=== PATIENT | male | born 1990 | race American Indian/Alaskan Native ===

== ENCOUNTER 2017-10-08 20:52 | Emergency (ER) | payer SELFPAY ==
[2017-10-08 20:57] VITALS: BMI 25.7
[2017-10-08 21:00] VITALS: O2SAT 100
[2017-10-08 21:16] VITALS: RESP 18
[2017-10-08] MEDS ORDERED: Sodium Chloride 0.9% 1,000 ML IV STA (21:46)
--- NOTE | 2017-10-08 21:49 | ED PDOC ---
HPI: Psych/Substance Abuse Time Seen by Provider: 10/08/17 21:40 Chief Complaint (Nursing): Substance Abuse Chief Complaint (Provider): substance abuse History Per: Patient, EMS, Other (girlfriend) Additional Complaint(s): 27 y/o male brought in by EMS for evaluation of possible overdose. As per patient, states he drank half a bottle of [place] whiskey and "passed out". As per girlfriend, patient was outside smoking a cigarette and when she came out she saw him sitting in a chair "unresponsive". Patient states she stuck her finger down his throat and he started vomiting but "gasping" so she called 911. Patient received two intranasal narcan doses, and two intravenous narcan doses and woke up within minutes. Patient denies opiate use. Actively vomiting. Against Medical Advice - AMA Patient Left Against Medical Advice: The patient declines admission to the hospital and wishes to leave the Emergency Department. This action is against my medical advice. This decision was made with informed refusal. The patient was told that admission to the hospital is necessary. Explanation of the reasons why were discussed. The risks of leaving were explained to the patient and include, but are not limited to, worsening of known or currently unknown conditions, permanent disability and from undiagnosed or untreated conditions. The patient has the capacity to make this informed decision and understands my explanation of the current medical problem and risks of leaving. The patient voluntarily accepts these risks and signed an AMA form documenting our conversation. The patient was given the opportunity to ask questions and reconsider. The patient was encouraged to return to the Emergency Department at any time for further care. Past Medical History Reviewed: Historical Data, Nursing Documentation, Vital Signs Vital Signs: Last Vital Signs Temp 98.1 F 10/08/17 21:16 Pulse 89 10/08/17 21:16 Resp 18 10/08/17 21:16 BP 130/78 10/08/17 21:16 Pulse Ox 100 10/08/17 21:16 - Medical History PMH: No Chronic Diseases - Surgical History Surgical History: No Surg Hx - Family History Family History: States: No Known Family Hx - Social History Current smoker - smoking cessation education provided: Yes Alcohol: Social Drugs: Cannabis - Allergies Allergies/Adverse Reactions: Allergies Allergy/AdvReac Type Severity Reaction Status Date / Time No Known Allergies Allergy Verified 10/08/17 20:57 Review of Systems ROS Statement: Except As Marked, All Systems Reviewed And Found Negative Neurological: Positive for: Altered Mental Status Physical Exam - Reviewed Nursing Documentation Reviewed: Yes Vital Signs Reviewed: Yes - Physical Exam Appears: Positive for: Well, Non-toxic, No Acute Distress Head Exam: Positive for: ATRAUMATIC, NORMAL INSPECTION, NORMOCEPHALIC Skin: Positive for: Normal Color Eye Exam: Positive for: Normal appearance, EOMI. Negative for: PERRL (pinpoint bilaterally) ENT: Positive for: Normal ENT Inspection Cardiovascular/Chest: Positive for: Regular Rate, Rhythm Respiratory: Positive for: Normal Breath Sounds Gastrointestinal/Abdominal: Positive for: Normal Exam Back: Positive for: Normal Inspection Extremity: Positive for: Normal ROM Neurologic/Psych: Positive for: Alert, Oriented - ECG O2 Sat by Pulse Oximetry: 100 - Progress ED Course And Treament: IV fluids, Zofran ODT Patient refusing labs, urine, ekg Wants to go home. Actively vomiting after PO challenge with water. Patient advised he will need to sign out against medical advice. Patient awake , alert, oriented x3. Displays competency in making medical decisions. Advised follow up PMD 2-3 days. Return precautions given. Disposition - Clinical Impression Clinical Impression: Persistent vomiting, Left against medical advice, Opiate overdose - Patient ED Disposition Is Patient to be Admitted: No Counseled Patient/Family Regarding: Diagnosis, Need For Followup - Disposition Referrals: [facility] [Outside] Disposition: Against Medical Advice Disposition Time: 23:15 Condition: STABLE Instructions: Leaving Against Medical Advice Forms: [facility] ED School/Work Excuse
[2017-10-08 23:51] VITALS: BP 128/76; PULSE 80; TEMP 98
== END 2017-10-08 23:18 | disposition left against medical advice (07) ==
LOC: H.ER 20:52
DX: R11.10 Vomiting, unspecified (principal); T40.601A Poisoning by unspecified narcotics, accidental (unintentional), initial encounter; F17.210 Nicotine dependence, cigarettes, uncomplicated

== ENCOUNTER 2018-11-21 11:25 | Emergency (ER) | payer OTHER ==
[2018-11-21 11:59] VITALS: BMI 26.1
[2018-11-21 12:00] VITALS: BP 127/85; PULSE 57; RESP 20; TEMP 98.2; O2SAT 98
--- NOTE | 2018-11-21 13:41 | ED PDOC ---
Upper Extremity Pain/Injury Time Seen by Provider: 11/21/18 12:10 Chief Complaint (Nursing): Upper Extremity Problem/Injury Chief Complaint (Provider): Right Wrist Pain, 3rd Digit Pain History Per: Patient History/Exam Limitations: no limitations Onset/Duration Of Symptoms: Hrs Additional Complaint(s): 28 year old male with no significant medical history presents to ED with right wrist pain and 3rd digit pain. He was playing basketball when he fell with his hand outstretched. Patient reports that pain is worse with certain movement but denies taking any medicine, numbness, tingling. PMD: Fabio Past Medical History Reviewed: Historical Data, Nursing Documentation, Vital Signs Vital Signs: Last Vital Signs Temp 98.2 F 11/21/18 11:59 Pulse 57 L 11/21/18 11:59 Resp 20 11/21/18 11:59 BP 127/85 11/21/18 11:59 Pulse Ox 98 11/21/18 11:59 Primary Care Provider: FAMILY PROVIDER,NO - Medical History PMH: No Chronic Diseases - Surgical History Surgical History: No Surg Hx - Family History Family History: States: No Known Family Hx - Home Medications Home Medications: Ambulatory Orders Medication Instructions Recorded Ibuprofen [Motrin Tab] 600 mg PO Q6 PRN #20 tab 11/21/18 - Allergies Allergies/Adverse Reactions: Allergies Allergy/AdvReac Type Severity Reaction Status Date / Time No Known Allergies Allergy Verified 10/08/17 20:57 Review of Systems ROS Statement: Except As Marked, All Systems Reviewed And Found Negative Neurological: Negative for: Numbness, Other (tingling) Physical Exam - Reviewed Nursing Documentation Reviewed: Yes Vital Signs Reviewed: Yes - Physical Exam Appears: Positive for: No Acute Distress Skin: Positive for: Warm, Dry Cardiovascular/Chest: Positive for: Chest Non Tender. Negative for: Gallop, Murmur, Irregularly Irregular Respiratory: Positive for: Other (breath sounds equal bilaterally). Negative for: Rales, Rhonchi, Wheezing Pulses-Radial (R): 2+ Extremity: Positive for: Tenderness (to mid wrist with decreased extension due to pain), Capillary Refill (less than 2 seconds), Swelling (and tenderness to 3rd PIP with small healed abrasion), Other (flexion and extension of PIP are intact) Neurological/Psych: Positive for: Awake, Alert, Symmetric/Intact Strength, Oriented (x3) - ECG O2 Sat by Pulse Oximetry: 98 (RA) Pulse Ox Interpretation: Normal - Radiology X-Ray: Interpreted by Me (no acute fractures or dislocation), Viewed By Me, Read By Radiologist Medical Decision Making Medical Decision Making: Time: 1323 Initial Plan: Patient does not want anything --Xray 1339 Xray examined by PA and determined that there are no acute fractures or dislocations. PA discussed findings with patient and agreed to share any discrepancies with the radiologist. Patient treated with Alfred wrap and hard metacarpal splint applied by ED staff official radiology reports below Right Wrist Xray FINDINGS: BONES: No acute fracture or destructive bony lesion identified. JOINTS: Normal. No dislocation. SOFT TISSUES: Normal. OTHER FINDINGS: None. IMPRESSION: Unremarkable right wrist radiographs. Right Hand Xray FINDINGS: RIGHT MIDDLE FINGER: Right middle finger normal, without fracture of focal lesion. Remainder of the right hand (as seen on the AP view) grossly unremarkable. JOINTS: No dislocation or subluxation identified. SOFT TISSUES: Normal. OTHER FINDINGS: None. IMPRESSION: Unremarkable right middle finger radiographs. Discussed results, diagnosis, treatment, return precautions and f/u with pt who is understanding, in agreement and stable for dc Scribe Attestation: Documented by Kristopher Cam acting as a scribe for Von Heller PA-C. Provider Scribe Attestation: All medical record entries made by the Scribe were at my direction and personally dictated by me. I have reviewed the chart and agree that the record accurately reflects my personal performance of the history, physical exam, medical decision making, and the department course for this patient. I have also personally directed, reviewed, and agree with the discharge instructions and disposition. Disposition - Clinical Impression Clinical Impression: Sprain of wrist, right, Sprain of right middle finger - Patient ED Disposition Is Patient to be Admitted: No Counseled Patient/Family Regarding: Studies Performed, Diagnosis, Need For Followup, Rx Given - Disposition Referrals: Malena Rubio MD [Medical Doctor] - Disposition: Routine/Home Disposition Time: 13:50 Condition: STABLE Additional Instructions: Thank you for letting us take care of you today. Rest, ice and elevate your hand and finger. Take Ibuprofen as needed for pain and swelling. Wear alfred wrap and splint during the day. The emergency medical care you received today was directed at your acute symptoms. If you were prescribed any medication, please fill it and take as directed. It may take several days for your symptoms to resolve. Return to the Emergency Department if your symptoms worsen, do not improve, or if you have any other problems. Please contact your doctor in 2 days for re-evaluation and follow up / or call one of the physicians/clinics you have been referred to that are listed on the Patient Visit Information form that is included in your discharge packet. Bring any paperwork you were given at discharge with you along with any medications you are taking to your follow up visit. Our treatment cannot replace ongoing medical care by a primary care provider (PCP) outside of the emergency department. Prescriptions: Ibuprofen [Motrin Tab] 600 mg PO Q6 PRN #20 tab PRN Reason: Pain, Moderate (4-7) Instructions: Wrist Sprain (DC), Finger Sprain (DC) Forms: [facility] ED School/Work Excuse Print Language: YORUBA - POA Present On Arrival: None
--- NOTE | 2018-11-21 13:45 | RAD ---
Date of service: 11/21/2018 PROCEDURE: Right middle finger radiographs. HISTORY: foosh COMPARISON: None. TECHNIQUE: AP radiograph of the right hand, as well as spot oblique and lateral images of index finger were obtained. 3 views obtained. FINDINGS: RIGHT MIDDLE FINGER: Right middle finger normal, without fracture of focal lesion. Remainder of the right hand (as seen on the AP view) grossly unremarkable. JOINTS: No dislocation or subluxation identified. SOFT TISSUES: Normal. OTHER FINDINGS: None. IMPRESSION: Unremarkable right middle finger radiographs.
--- NOTE | 2018-11-21 13:46 | RAD ---
Date of service: 11/21/2018 PROCEDURE: Right Wrist Radiographs. HISTORY: foosh COMPARISON: None. TECHNIQUE: 3 views obtained. FINDINGS: BONES: No acute fracture or destructive bony lesion identified. JOINTS: Normal. No dislocation. SOFT TISSUES: Normal. OTHER FINDINGS: None. IMPRESSION: Unremarkable right wrist radiographs.
== END 2018-11-21 13:53 | disposition home or self-care (01) ==
LOC: H.ER 11:25
DX: S63.502A Unspecified sprain of left wrist, initial encounter (principal); S63.612A Unspecified sprain of right middle finger, initial encounter; W19.XXXA Unspecified fall, initial encounter; Y92.310 Basketball court as the place of occurrence of the external cause